=== PATIENT | female | born 1960 | race Caucasian/White ===

== ENCOUNTER → 2017-06-29 | Outpatient (CLI) | payer BC ==
--- NOTE | 2017-07-01 16:06 | Diagnostic Imaging Report ---
#[id number] - MGSCRBIL #BILATERAL DIGITAL SCREENING MAMMOGRAM WITH CAD: 06/29/2017 CLINICAL: Routine screening. No prior exams were available for comparison. Current study contains 6 films. The tissue of both breasts is predominantly fatty. Current study was also evaluated with a Computer Aided Detection (CAD) system. There are benign calcifications in both breasts. There also is an enlarged lymph node in the right axilla with a normal appearing fatty hilum. No significant masses, calcifications or other findings are seen in either breast. IMPRESSION: BENIGN There is no mammographic evidence of malignancy. Enlarged right axillary lymph node. A 1 year screening mammogram is recommended. The patient will be notified by letter of the results. Gianni Siu Jr., D.O. cw/:07/01/2017 10:53:47 [employer] Operator: Mariaa [email or web address])(Dora), [facility] letter sent: Normal Exam Mammogram BI-RADS: 2 Benign
== END ==
LOC: MAMMO 09:28
PROVIDERS: ATTEND Obstetrics & Gynecology
DX: Z12.31 Encounter for screening mammogram for malignant neoplasm of breast (principal)
CPT/HCPCS: G0202